=== PATIENT | female | born 1945 | race Caucasian/White ===

== ENCOUNTER 2016-03-21 01:51 | Emergency (ER) | payer MEDICARE, OTHER ==
[2016-03-21] MEDS ORDERED: ONDANSETRON ODT 4 MG TAB ONE (02:32)
[2016-03-21] MEDS ORDERED: DILAUDID 1 MG/ML AMP ONE (02:32)
== END 2016-03-21 05:09 | disposition home or self-care (01) ==
LOC: ER 01:51
DX: S43.422A Sprain of left rotator cuff capsule, initial encounter (principal); S80.211A Abrasion, right knee, initial encounter; W01.0XXA Fall on same level from slipping, tripping and stumbling without subsequent striking against object, initial encounter; Y92.009 Unspecified place in unspecified non-institutional (private) residence as the place of occurrence of the external cause
CPT/HCPCS: 73030; 73060; 73080; 73090; 96372; 99285; J1170